=== PATIENT | male | born 1975 | race Caucasian/White ===

== ENCOUNTER → 2021-09-14 10:24 | Outpatient (CLI) | payer OTHER, SELFPAY ==
[2021-09-14 19:53] LABS: SARS-CoV-2 RNA PCR Positive
== END ==
PROVIDERS: PCP Internal Medicine; Visit Provider Physician Assistant
DX: U07.1 COVID-19 (principal)
CPT/HCPCS: C9803; U0003; U0005

== ENCOUNTER 2022-01-21 12:09 | Outpatient (CLI) | payer OTHER, SELFPAY ==
--- NOTE | ~2022-01-21 | XR_ITS ---
EXAMINATION: XR abdomen/kub 1V DATE: 01/21/2022 12:23 INDICATION: Nephrolithiasis presenting with hematuria TECHNIQUE: A supine view of the abdomen on 2 radiographs was obtained. COMPARISON: None. FINDINGS: No evident urolithiasis. A few small likely calcification project over the left side of the prostate. Normal bowel gas pattern. 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 With like ly moderate osteoarthritis at the lumbosacral facet joints. IMPRESSION: 1. Normal bowel gas pattern with no evident urolithiasis. Reviewed, dictated and finalized at location B.
== END 2022-01-21 12:10 | disposition home or self-care (01) ==
PROVIDERS: PCP Internal Medicine; Visit Provider Urology
DX: N20.0 Calculus of kidney (principal); M16.0 Bilateral primary osteoarthritis of hip; M47.898 Other spondylosis, sacral and sacrococcygeal region
CPT/HCPCS: 74018

== ENCOUNTER 2022-11-15 08:09 | Outpatient (CLI) | payer OTHER, SELFPAY ==
--- NOTE | 2022-12-13 18:42 | WPDSLEEPSTUD ---
Sleep Study Date of Study: 11/15/22 Ordering Provider: Dom Blanco DO Interpreting Physician: Suma Mcleod MD Sleep Study Type: Polysomnogram Height: 1.8 m Weight: 83.915 kg Body Mass Index: 25.7 Neck Circumference (inches): 16.5 [place]: 10 Reason for Sleep Study Hypersomnolence, fatigue, non-restorative sleep Sleep History Arsen Lawson is a 47-year-old male who complains of feeling tired during the day. He has loud frequent snoring. He has Nasal allergies, uses Flonase and Claritin. He has a history of asthma. He rarely awakens from sleep feeling short of breath. He does not awaken at night with heartburn, belching or coughing. He snores loudly enough that others complain. This is very frequent. He rarely has trouble sleeping with a cold. He rarely wakes up gasping for breath at night. He rarely has breathing problems at night observed by others. He rarely sweats excessively at night or notice his heart pounding or beating Irregularly at night. He frequently falls asleep during the day, never involuntarily or while driving. He does not have loss of muscle tone with strong emotion. He rarely has daytime difficulties due to excessive sleepiness. He rarely feels paralyzed on waking or falling asleep. He rarely has vivid dreamlike scenes on waking or falling asleep. He is not afraid to go to sleep. He rarely has nightmares. He rarely remembers his dreams. He rarely has racing thoughts. He rarely feels sad depressed or anxious. He rarely has muscular tension. He rarely notices parts of his body jerking. He rarely kicks at night. He rarely has crawling and aching feelings in his legs or any kind of leg pain at night. Rarely has morning jaw pain and rarely grinds his teeth during sleep. Rarely is bothered by pain during the day or awakened by pain at night. He occasionally wakes up feeling stiff the morning with sore achy muscles rarely wakes up with pain in the neck and spine. He has nightmares and fatigue. Normal bedtime is 11:00 p.m. falling asleep within 2 minutes generally waking twice at night. Sometimes he wakes to go to the bathroom, at other times may just repositioned to return to sleep. Sometimes, he may look at his iPad. His wake time is 6:30 a.m.. On weekends, bedtime is also 11:00 p.m. and his wake time is 9:00 a.m.. he takes naps in the afternoon or evening. A short nap lasting 10 or 15 minutes may be refreshing. He feels better in the morning compared to other times of day. He never has morning headaches. He occasionally awakens feeling refreshed. He rarely has memory or concentration problems. Habits: Quit tobacco. Caffeine 1 can per day. Alcohol on weekends. No recreational substances. [facility] Past Medical History Medical History Allergies Asthma Kidney stones Surgical History Surgical History History of repair of ACL Family History Family History Father Heart disease Mother Heart disease Sibling Thyroid disorder Social History Social History (Updated 07/19/22 @ 11:12 by Brissa Palumbo MA) Smoking status: Former smoker Tobacco type: cigarettes Lack of Transportation: No Lack of Food: Never True Current Housing: I Have Housing Concerned About Future Housing: No Difficulty Paying Gas/Electric Bills: No Difficulty Paying for Meds: No Currently Unemployed: No Education: Bachelor's Degree Difficulty w/ Childcare or Family Care: No Medications Home Medications Medication Instructions Recorded Confirmed Type albuterol sulfate 90 mcg/actuation 1 inh inhalation Q4-6H PRN 12/28/20 12/05/22 History breath activated powder inhaler Shortness Of Breath fluticasone propionate 50 1 spray intranasal DAILY 12/28/20 12/05/22 History mcg/actuation nasal spray,suspension (Flonase
[2022-12-13 20:27] VITALS: BMI 25.7
== END 2022-11-16 08:28 | disposition home or self-care (01) ==
LOC: ANHCSM 08:10
PROVIDERS: PCP Internal Medicine; Visit Provider Internal Medicine
DX: G47.10 Hypersomnia, unspecified (principal); G47.61 Periodic limb movement disorder; Z87.891 Personal history of nicotine dependence
CPT/HCPCS: 95810

== ENCOUNTER 2022-12-05 09:21 | Emergency (ER) | payer OTHER, SELFPAY ==
--- NOTE | 2022-12-05 09:25 | ED.URI ---
HPI - URI/Sore Throat General Chief Complaint: Upper Respiratory Infection Stated Complaint: SINUS/SORE THROAT Time Seen by Provider: 12/05/22 09:32 Source: patient and RN notes reviewed Mode of arrival: ambulatory Limitations: no limitations History of Present Illness HPI Narrative: 47-year-old male presents concern for 2 week history of sinus congestion, drainage, sinus pain. Reports he sees an ENT for chronic sinus problems. He reports he has been taking Sudafed, Flonase, ibuprofen Tylenol. He reports occasional cough. Reports chills. Denies fever, aches, sweats MD elicited complaint: cough and sore throat Related Data Home Medications Medication Instructions Recorded Confirmed albuterol sulfate 90 mcg/actuation 1 inh inhalation Q4-6H PRN 12/28/20 12/05/22 breath activated powder inhaler Shortness Of Breath fluticasone propionate 50 1 spray intranasal DAILY 12/28/20 12/05/22 mcg/actuation nasal spray,suspension (Flonase Allergy Relief) loratadine 10 mg tablet (Claritin) 10 mg PO DAILY 12/28/20 12/05/22 Allergies Allergy/AdvReac Type Severity Reaction Status Date / Time amoxicillin [From Augmentin] AdvReac Vomiting Verified 12/05/22 09:33 clavulanic acid AdvReac Vomiting Verified 12/05/22 09:33 [From Augmentin] Review of Systems Review of Systems: CONSTITUTIONAL: Denies malaise, sweats, or fever. Reports chills EYES: Denies visual changes, redness, or discharge. ENT: Reports rhinorrhea, congestion, sinus pain. Denies otalgia and sore throat. CARDIOVASCULAR: Denies chest pain, palpitations, or edema. RESPIRATORY: Reports cough. Denies dyspnea. GASTROINTESTINAL: Denies abdominal pain, nausea, vomiting, diarrhea SKIN: Denies rash or itching. MUSCULOSKELETAL: Denies myalgia. NEUROLOGIC: Reports headache. All systems reviewed & are unremarkable except as noted in HPI and below PMFSH Past Medical History Medical History Allergies Asthma Kidney stones Surgical History Surgical History History of repair of ACL Family History Family History Father Heart disease Mother Heart disease Sibling Thyroid disorder Social History Social History (Updated 07/19/22 @ 11:12 by Brissa Palumbo MA) Smoking status: Former smoker Tobacco type: cigarettes Lack of Transportation: No Lack of Food: Never True Current Housing: I Have Housing Concerned About Future Housing: No Difficulty Paying Gas/Electric Bills: No Difficulty Paying for Meds: No Currently Unemployed: No Education: Bachelor's Degree Difficulty w/ Childcare or Family Care: No Comments At time of signature, agree with nursing past medical, surgical, social and family history. There is no relevant family history pertinent to the presenting complaint Exam Narrative: GENERAL: Well-appearing, well-nourished, and in no acute distress. HEAD: Normocephalic EYES: PERRLA, conjunctivae clear ENT: Nares clear, turbinates edematous and erythematous. Mucous membranes moist. TM pearly burton with dull light reflex bilaterally; no tragal tenderness. Oropharynx not erythematous without lesions. Tonsils not enlarged and without exudate, no drooling, no hoarseness, no trismus, uvula midline. NECK: Supple. No lymphadenopathy CHEST: Clear to auscultation, breath sounds equal. No wheezing, rhonchi, rales, or stridor. No respiratory distress, speaks in full sentences. HEART: Regular rate and rhythm. No murmur heard. SKIN: Warm, dry, no rash. NEURO: Alert and oriented x3. PSYCH: Normal mood and affect Course Course Emergency Course: Patient is aware of diagnosis, understands and agrees to treatment plan. Anticipatory guidance given. Patient agrees to follow-up as directed and is aware of reasons to seek care at the emergency department. Portions of this record may hav
[2022-12-05 09:28] VITALS: BP 137/81; PULSE 80; RESP 16; TEMP 36.3; O2SAT 99
== END 2022-12-05 09:40 | disposition home or self-care (01) ==
PROVIDERS: Emergency Provider Nurse Practitioner; PCP Internal Medicine
DX: J01.90 Acute sinusitis, unspecified (principal); B96.89 Other specified bacterial agents as the cause of diseases classified elsewhere; Z87.891 Personal history of nicotine dependence
CPT/HCPCS: 99213; G0463

== ENCOUNTER 2023-11-15 06:06 | Day surgery (SDC) | payer OTHER, SELFPAY ==
[2023-10-26 13:12] VITALS: BMI 26.6
[2023-11-07 14:16] VITALS: BMI 25.4
--- NOTE | 2023-11-14 17:42 | WPDANESEPPF ---
Anes - Initial Pre Proc Eval Procedure: Operation Date: 11/15/23 08:00 Proposed Procedures p Screening Colonoscopy - Lenard Giles MD Date/Time: 11/14/23 17:42 Surgeon: Lenard Giles MD Pre Op Diagnosis: Neoplasm Screening Patient Data Age: 48 Gender: M Height: 1.8 m Weight: 83 kg Allergies Allergy/AdvReac Type Severity Reaction Status Date / Time No Known Allergies Allergy Verified 11/15/23 06:54 Home Medications Medication Instructions Recorded Confirmed Type albuterol sulfate 90 mcg/actuation 1 inh inhalation Q4-6H PRN 12/28/20 11/15/23 History breath activated powder inhaler Shortness Of Breath fluticasone propionate 50 1 spray intranasal DAILY 12/28/20 11/15/23 History mcg/actuation nasal spray,suspension (Flonase Allergy Relief) loratadine 10 mg tablet (Claritin) 10 mg PO DAILY 12/28/20 11/15/23 History Patient hx anesthesia problems: none Family hx anesthesia problems: none Results Review: All pre-operative results and documents have been reviewed as part of the pre-operative evaluation. [facility] Past Medical History Medical History (Updated 11/15/23 @ 07:13 by Lenard Giles MD) Allergies Asthma Hyperlipidemia Kidney stones Surgical History Surgical History History of repair of ACL Family History Family History Father Heart disease Mother Heart disease Sibling Thyroid disorder Social History Social History Smoking status: Former smoker Tobacco type: cigarettes Alcohol intake: current Substance use: never Substance use type: does not use Lack of Transportation: No Lack of Food: Never True Current Housing: I Have Housing Concerned About Future Housing: No Difficulty Paying Gas/Electric Bills: No Difficulty Paying for Meds: No Currently Unemployed: No Education: Bachelor's Degree Difficulty w/ Childcare or Family Care: No Living arrangements: with family Spiritual care concerns: No Anes - Eval Final PreProcedure Day of Procedure 11/14/23 17:42 Patient weight: overweight Heart: regular rate and rhythm Lungs: clear to auscultation Airway: Mallampati scale class II Neurological: alert and oriented Last oral intake: >/= 8 hours ASA classification: II Emergent: no Anesthetic plan: proceed Anesthesia type and monitoring: general GIVS and standard monitoring Results Review: All pre-operative results and documents have been reviewed as part of the pre-operative evaluation. Informed Consent: The patient's anesthetic plan and its attendant risks and benefits were discussed with the patient/family/POA. Questions were solicited and answers provided to the satisfaction of the patient/family/POA.
[2023-11-15 06:52] VITALS: BP 108/81; PULSE 79; RESP 14; TEMP 36.4; O2SAT 97
[2023-11-15] MEDS: LACTATED RINGERS 1,000 ML 150 ML IV CONT (07:02)
--- NOTE | 2023-11-15 07:12 | P.HP_ITS ---
History of Present Illness History of Present Illness Consent: Risks, benefits, and alternatives have been discussed and questions answered. Patient agrees to proceed with procedure. Chief complaint: Neoplasm Screening Narrative: Arsen Lawson is a 48 year old male presents for screening colonoscopy. Patient's current weight appetite and bowel movements are normal. He denies abdominal pain. Patient has had no bleeding. Family history noncontributory. Review of Systems Review of Systems: Review of systems is noncontributory. [facility] Past Medical History Medical History (Updated 11/15/23 @ 07:13 by Lenard Giles MD) Allergies Asthma Hyperlipidemia Kidney stones Surgical History Surgical History History of repair of ACL Family History Family History Father Heart disease Mother Heart disease Sibling Thyroid disorder Social History Social History Smoking status: Former smoker Tobacco type: cigarettes Alcohol intake: current Substance use: never Substance use type: does not use Lack of Transportation: No Lack of Food: Never True Current Housing: I Have Housing Concerned About Future Housing: No Difficulty Paying Gas/Electric Bills: No Difficulty Paying for Meds: No Currently Unemployed: No Education: Bachelor's Degree Difficulty w/ Childcare or Family Care: No Living arrangements: with family Spiritual care concerns: No Meds Home Medications and Allergies Home Medications Medication Instructions Recorded Confirmed Type albuterol sulfate 90 mcg/actuation 1 inh inhalation Q4-6H PRN 12/28/20 11/15/23 History breath activated powder inhaler Shortness Of Breath fluticasone propionate 50 1 spray intranasal DAILY 12/28/20 11/15/23 History mcg/actuation nasal spray,suspension (Flonase Allergy Relief) loratadine 10 mg tablet (Claritin) 10 mg PO DAILY 12/28/20 11/15/23 History Allergies Allergy/AdvReac Type Severity Reaction Status Date / Time No Known Allergies Allergy Verified 11/15/23 06:54 Vital Signs Vital Signs - 24 hr 11/15/23 06:52 Temperature 97.5 F L Pulse Rate 79 Respiratory Rate 14 Blood Pressure 108/81 Pulse Oximetry 97 Oxygen Delivery Room Air Exam Narrative: Physical exam reveals patient to be alert. Vital signs stable. HEENT exam is unremarkable. Patient is anicteric. Lungs are clear to auscultation and to percussion. Heart is without murmur or extra sounds. Abdomen bowel sounds are present soft nontender with no organomegaly. Digital external rectal exam is normal. Assessment and Plan Assessment and plan (1) Encounter for screening colonoscopy: Code(s): Z12.11 - Encounter for screening for malignant neoplasm of colon Status: Acute Assessment and Plan: Patient presents today for screening colonoscopy. He appears to be at average risk for colon polyps. Further recommendations may be given after his endoscopy.
[2023-11-15 08:18] VITALS: BP 103/73; PULSE 82; RESP 16; O2SAT 98
[2023-11-15 08:28] VITALS: BP 112/75; PULSE 69; RESP 20; O2SAT 98
[2023-11-15 08:38] VITALS: BP 111/83; PULSE 70; RESP 20; O2SAT 97
--- NOTE | 2023-11-15 12:28 | WPDANESPN ---
Anes - Prog Note Post-Op Date/Time: 11/15/23 12:28 Cardiovascular status: normal Respiratory status: normal Airway patency: baseline Mental status: baseline Post-Op hydration status: normal Vital Signs: Last Vital Signs Temp 36.4 C L 11/15/23 06:52 Pulse 70 11/15/23 08:38 Resp 20 11/15/23 08:38 BP 111/83 11/15/23 08:38 Pulse Ox 97 11/15/23 08:38 O2 Del Method Room Air 11/15/23 08:38 Pain Score (VAS): 0 I/O: Intake & Output 11/14/23 11/15/23 11/15/23 23:59 07:59 15:59 Intake Total 600 Balance 600 Post-procedural complaints: none Patient Feedback: Patient satisfied with anesthetic care. Other Findings: Patient vital signs back to baseline. Patient denies nausea and vomiting. Patient's pain under control. Patient OK for discharge.
== END 2023-11-15 08:54 | disposition home or self-care (01) ==
PROVIDERS: PCP Physician Assistant; Visit Provider Internal Medicine Gastroenterology
PROC: 0DJD8ZZ Inspection of Lower Intestinal Tract, Via Natural or Artificial Opening Endoscopic (ICD-10-PCS; CPT 45378; principal; 2023-11-15 08:00)
DX: Z12.11 Encounter for screening for malignant neoplasm of colon (principal); D12.0 Benign neoplasm of cecum; D12.4 Benign neoplasm of descending colon; K57.30 Diverticulosis of large intestine without perforation or abscess without bleeding; K64.8 Other hemorrhoids
CPT/HCPCS: 45385

== ENCOUNTER 2023-11-15 14:28 | Outpatient (NON) | payer OTHER, SELFPAY | END 2023-11-15 14:29 | disposition home or self-care (01) | LOC: ANHLAB 14:29 | PROVIDERS: PCP Physician Assistant; Visit Provider Internal Medicine Gastroenterology | DX: Z12.11 Encounter for screening for malignant neoplasm of colon (principal) | CPT/HCPCS: 88305 ==

== ENCOUNTER → 2024-07-01 09:37 | Outpatient (REF) | payer OTHER, SELFPAY | LOC: ANHLAB 09:37 | PROVIDERS: PCP Physician Assistant; Visit Provider Plastic Surgery | DX: L72.0 Epidermal cyst (principal) | CPT/HCPCS: 88305 ==

== ENCOUNTER 2024-12-19 15:46 | Emergency (ER) | payer OTHER, SELFPAY ==
[2024-12-19 15:59] VITALS: BP 123/84; PULSE 93; RESP 16; O2SAT 99
[2024-12-19 16:20] VITALS: TEMP 36.4
--- OUTSIDE RECORDS SUMMARY | 2024-12-19 16:59 | XMS_ITS | Clinical Summary ---
Author Organization [facility] Address [address] [place] [address] [address] Prov[address] Care Drive In Theater Attendant Name Role Phone Claude Woodward MD Primary Care Provider [phone] Allergies No known active allergies Medications albuterol HFA (PROVENTIL HFA,VENTOLIN HFA,PROAIR HFA) 90 mcg/actuation inhalerIndicati ons:Acute Asthma Attack Inhale 2 puffs every 6 (six) hours as needed for shortness of breath Active fluticasone propionate (FLONASE) 50 mcg/actuation nasal sprayIndication s:Allergic Rhinitis Administer 1 spray into each nostril nightly Active Active Problems Problem Noted Date Diagnosed Date Tear of medial meniscus of left knee, current S/P ACL reconstruction 09/07/2020 Left anterior cruciate ligament tear 03/02/2020 Overview (03/02/2020): Added automatically from request for surgery [id number] Immunizations Immunization Administration Dates Next Due Influenza, Quadrivalent, Rec ombinant, Egg Free, Preservative Free, Intramuscular 07/26/2018 Influenza, Trivalent, IM (MDV) 09/20/2013,2011 Influenza, Trivalent, Preservative Free, Intramu scular 06/11/2017 Tdap 06/30/2024 Surgical History Surgery Date Site/Laterality Comments KIDNEY STONE SURGERY KNEE ARTHROSCOPY 03/23/2020 Left ACL RECONSTRUCTION HAMSTRING Medical History Medical History Date Comments Asthma well controlled Seasonal allergies Family History Medical History Relation Name Comments Heart disease Father No Known Problems Mother Heart disease Other Anesthesia problems Neg Hx Relation Name Status Comments Father Mother Other Social History Tobacco Use Types Packs/Day Years Used Date Smoking Tobacco: Never Smokeless Tobacco: Never Alcohol Use Standard Drinks/Week Comments Yes 4 (1 standard drink = 0.6 oz pur e alcohol) SOCIALLY Sex and Gender Information Value Date Recorded Sex Assigned at Not on file Legal Sex Male 8:25 AM CDT Gender Identity Not on file Sexual Orientation Not on file Obstetrics History Last Filed Vital Signs Vital Sign Reading Time Taken Comments Blood Pressure 120/70 06/30/2024 2:21 PM ANALYST PROGRAMMER Pulse 78 06/30/2024 2:21 PM ANALYST PROGRAMMER Temperature 37.2 C (98.9 F) 06/30/2024 2:21 PM ANALYST PROGRAMMER Respiratory Rate 20 06/30/2024 2:21 PM ANALYST PROGRAMMER Oxygen Saturation 99% 06/30/2024 2:21 PM ANALYST PROGRAMMER Inhaled Oxygen Concentration - - Weight 83.9 kg (185 lb) 06/30/2024 2:21 PM ANALYST PROGRAMMER Height 180.3 cm (5' 11 ) 06/30/2024 2:21 PM ANALYST PROGRAMMER Body Mass Index 25.8 06/30/2024 2:21 PM ANALYST PROGRAMMER Plan of Treatment Health Maintenance Due Date Last Done Comments Colon Cancer Screening-Colonoscopy 1974 Depression Screening 1974 Hepatitis C Screening 1974 Prostate Cancer Screening-PSA 1974 Hepatitis B Screening 1992 Regular Well Visit/Exam 18-64 1992 Covid-19 Vaccine ( season) 2024 11/16/2020, 10/14/2020 Influenza Vaccine (#1) 2024 8, 06/11/2017, 09/20/2013, Additional history exists Zoster Vaccine (1 of 2) 2024 DTaP/Tdap/Td Vaccine (2 - Td or Tdap) 06/30/2034 06/30/2024 Pneumococcal vaccine <65 Aged Out No longer eligible based on patient's age to complete this topic Medical Devices Implanted Type Area Surveillance Analyst Device Identifier Shelf Expiration Date Model / Serial / Lot [employer] Ar-[id number] Tightrope Acl Right Device Fixation Titanium Uhmwpe Sterile Latex Free - [id number] Implanted:Qty: 1 on 03/23/2020 by Noelle Acevedo MD at [facility] [place] Left: Knee [employer] 08/27/2024 AR-[id number] / / [id number] [employer] Ar-2324bcc Swivelock C 4.75mm 19.1mm Closed Eyelet Vent [place] Suture - [id number] Implanted:Qty: 1 on 03/23/2020 by Noelle Acevedo MD at [facility] [place] Left: Knee [employer] 12/26/2023 AR-2324BCC / / [id number] [employer] Ar-4030c-09 Screw Fastthread Biocomposite Interference 9mm X 30mm - [id number] Implanted:Qty: 1 on 03/23/2020 by Noelle Acevedo MD at [facility] Left: Knee [employer] 11/26/2023 AR-4030C-09 / / [id number] Insurance [facility] Care Teams Drive In Theater Attendant Relationship Specialty Start Date End Date Claude Woodward MD [address] [place] [id number] PCP - General Family Medicine 11/04/19
--- OUTSIDE RECORDS SUMMARY | 2024-12-19 16:59 | XMS_ITS | Referral Summary ---
Author Organization [facility] Address [address] [place] [address] Care Team Providers Care Supervisor Assembly Department Name Role Phone Claude Woodward MD Primary Care Provider [phone] Allergies No known active allergies Medications albuterol [...] (03/02/2020): Added automatically from request for surgery [id number] Immunizations Immunization Administration Dates Next Due Influenza, Quadrivalent, Rec ombinant, Egg Free, Preservative Free, Intramuscular 07/26/2018 Influenza, Trivalent, IM (MDV) 09/20/2013,2011 Influenza, Trivalent, Preservative Free, Intramu scular 06/11/2017 Tdap 06/30/2024 Social History Tobacco Use Types Packs/Day Years Used Date Smoking Tobacco: Never Smokeless Tobacco: Never Alcohol Use Standard Drinks/Week Comments Yes 4 (1 standard drink = 0.6 oz pur e alcohol) SOCIALLY Sex and Gender Information Value Date Recorded Sex Assigned at Not on file Legal Sex Male 8:25 AM CDT Gender Identity Not on file Sexual Orientation Not on file Last Filed Vital Signs Vital Sign Reading Time Taken Comments Blood Pressure 120/70 06/30/2024 2:21 PM WOOD CALKER Pulse 78 06/30/2024 2:21 PM WOOD CALKER Temperature 37.2 C (98.9 F) 06/30/2024 2:21 PM WOOD CALKER Respiratory Rate 20 06/30/2024 2:21 PM WOOD CALKER Oxygen Saturation 99% 06/30/2024 2:21 PM WOOD CALKER Inhaled Oxygen Concentration - - Weight 83.9 kg (185 lb) 06/30/2024 2:21 PM WOOD CALKER Height 180.3 cm (5' 11 ) 06/30/2024 2:21 PM WOOD CALKER Body Mass Index 25.8 06/30/2024 2:21 PM WOOD CALKER Plan of Treatment Not on file Medical Devices Implanted Type Area Doctor'S Assistant Device Identifier Shelf Expiration Date Model / Serial / Lot [employer] Ar-[id number] Tightrope Acl Right Device Fixation Titanium Uhmwpe Sterile Latex Free - [id number] Implanted:Qty: 1 on 03/23/2020 by Noelle Acevedo MD at [facility] [place] Left: Knee [employer] 08/27/2024 AR-1588RT / / [id number] [employer] Ar-2324bcc Swivelock C 4.75mm 19.1mm Closed Eyelet Vent [place] Suture - [id number] Implanted:Qty: 1 on 03/23/2020 by Noelle Acevedo MD at [facility] Left: Knee [employer] 12/26/2023 AR-2324BCC / / [id number] [employer] Ar-4030c-09 Screw Fastthread Biocomposite Interference 9mm X 30mm - [id number] Implanted:Qty: 1 on 03/23/2020 by Noelle Acevedo MD at [facility] [place] Left: Knee [employer] 11/26/2023 AR-4030C-09 / / [id number] Insurance [facility] CHOICE PLUS [facility] CHOICE PLUS [facility] CHOICE PLUS Member Subscriber Plan / Payer (Ef fective 2021-Present) Name:Arsen Radford Relation to Subscriber:Spouse Name:AMAYA RADFORD Date of :1980 Address: [address] [place] [id number] Payer ID:[id number] (NAIC) Type:[facility] HMO/PPO Address: [place] [phone] Care Teams Supervisor Assembly Department Relationship Specialty Start Date End Date Claude Woodward MD [address] [place] [id number] PCP - General Family Medicine 11/04/19
--- OUTSIDE RECORDS SUMMARY | 2024-12-19 16:59 | XMS_ITS | Encounter Summary ---
Author Organization [facility] Address [address] [place] [address] Care Team Providers Care Crm Dynamics Developer Name Role Phone Claude Woodward MD Primary Care Provider Encounter Details Date Type Department Care Team (Late st Contact Info) Description 03/02/2018 Lab Requisition [facility] Care DermPath Lab [address] [facility] [place] [id number] Ari Tellez MD [address] [place] [address] Social History Tobacco Use Types Packs/Day Years Used Date Smoking Tobacco: Never Assessed Sex and Gender Information Value Date Recorded Sex Assigned at Not on file 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 Gender Identity Not on file Sexual Orientation Not on file documented as of this encounter Plan of Treatment Not on file documented as of this encounter Procedures Procedure Name Priority Date/Time Associated Diagnosis Comments DERMPATH SLIDE CONSULT Routine 03/02/2018 12:00 AM CDT documented in this encounter Results * DERMPATH SLIDE CONSULT (03/02/2018 12:00 AM CDT) Case Report Dermatopathology Report Case: [id number] Authorizing Provider: Ari Tellez MD Collected: 03/02/2018 12:00 AM Pathologist: Patricia Singh MD Received: 03/02/2018 09:40 AM Specimen: Slide(s), Left lower back, [id number]# [id number] 8 2:41 PM CDT DERMATOPATHOLOGY LABORATORY Final Diagnosis Specimen A. Slide(s), Left lower back, OSC# [id number]: DERMATOFIBROMA, CELLULAR TYPE (D23.9) 8 2:41 PM CDT DERMATOPATHOLOGY LABORATORY Clinical History Materials received from: [facility], [email or web address] [address] [place] [id number] Received at the request of Dr. Ari Tellez, a consult will be performed on 3 slide(s) labeled [id number]. Bx Date: 02/19/2018 Cyst vs neoplasm. All slides returned. Any additional sections, special stains or immunohistochemical stains performed by our laboratory will be kept here on file. 2:41 PM CDT DERMATOPATHOLOGY LABORATORY Microscopic Description Specimen A. Slide(s), Left lower back, OSC# [id number]: Within the dermis, there is a cellular proliferation of fibrohistiocytic cells in haphazard array among coarse collagen bundles. There is overlying epidermal hyperplasia. There is collagen trapping at the periphery. COMMENT: Dr. Rose Strong has also reviewed this case and agrees with the diagnosis. 2:41 PM CDT DERMATOPATHOLOGY LABORATORY Disclaimer An external and internal positive and negative controls are appropriate for the histochemical, immunohistochemical and immunofluorescence stain(s) in this case (if any), except where stated explicitly. The performance characteristics of the stain(s) cited in this report were developed and its performance characteristic determined by the Dermatopathology Laboratory at [facility]. These tests need not be, and therefore are not, approved by the [place] Food and Drug Administration. The tests are used for clinical purposes. Billing Codes Specimen Charges Stain Charges 56363 1 8 2:41 PM CDT DERMATOPATHOLOGY LABORATORY Embedded Images 8 2:41 PM CDT DERMATOPATHOLOGY LABORATORY Pathology/Cytolog y SLIDE / Unknown 03/02/2018 03/02/2018 9:40 AM CDT Ari Tellez MD LAB - PATHOLOGY/CYTOLOGY ORDERAB LES Final Result DERMATOPATHOLOGY LABORATORY [facility] - Department of Dermatology [address] [facility], 5th Floor Lab [address] [phone] documented in this encounter Visit Diagnoses Not on filedocumented in this encounter Care Teams Crm Dynamics Developer Relationship Specialty Start Date End Date Claude Woodward MD [address] [place] [address] PCP - General Family Medicine 08/25/18 documented as of this encounter
--- OUTSIDE RECORDS SUMMARY | 2024-12-19 16:59 | XMS_ITS | Clinical Summary ---
Author Organization [facility] Address [address] [facility] [place] [address] Care Team Providers Care Microbiology Coordinator Name Role Phone Claude Woodward MD Primary Care Provider + [phone] Source Comments [facility],non-owned Affiliates and Associated Physician Practices is amultiple site organization consisting of ambulatory clinics and hospital sitesin [place], [place], [place] and [place]. This disclosure is being madepursuant to the Care Everywhere program and may not contain all informatio navailable regarding this patient. Last updated 18.[facility] Allergies No known active allergies Medications * Be aware that medications may not be up to date on this document. Alwaysverify current medications with the patient. Fluticasone Propionate (FLONASE NA) Active Loratadine (CLARITIN PO) Active Immunizations Immunization Administration Dates Next Due iNFLUENZA VACCINE, RECOM-DE DIOS, QUADR. (FLUBLOCK QUADRIVALENT; 18Y+) (RIV4) 07/26/2018 Family History Medical History Relation Name Comments Other - Cardiac Father Asthma Neg Hx Autoimmune Disease Neg Hx Bipolar Disorder Neg Hx Cancer - Breast Neg Hx Cancer - Colon Neg Hx Cancer - Other Neg Hx Cancer - Ovarian Neg Hx Cancer - Pancreatic Neg Hx Cancer - Prostate Neg Hx Depression Neg Hx Eczema Neg Hx Hypertension Neg Hx Migraine Neg Hx Osteoporosis Neg Hx Seizures Neg Hx Sudd. 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 Gender Identity Not on file Sexual Orientation Not on file Last Filed Vital Signs Vital Sign Reading Time Taken Comments Blood Pressure 116/62 08/25/2018 2:29 PM LIVESTOCK BREEDER Pulse 80 08/25/2018 2:29 PM LIVESTOCK BREEDER Temperature 36.8 C (98.2 F) 08/25/2018 2:29 PM LIVESTOCK BREEDER Respiratory Rate 16 08/25/2018 2:29 PM LIVESTOCK BREEDER Oxygen Saturation 97% 08/25/2018 2:29 PM LIVESTOCK BREEDER Inhaled Oxygen Concentration - - Weight 83.9 kg (185 lb) 08/25/2018 2:29 PM LIVESTOCK BREEDER Height 180.3 cm (5' 11 ) 08/25/2018 2:29 PM LIVESTOCK BREEDER Body Mass Index 25.8 08/25/2018 2:29 PM LIVESTOCK BREEDER Plan of Treatment Health Maintenance Due Date Last Done Comments COLOGUARD (AGES 45-75) - COL ON CA SCREENING 1974 COLON MONITORING 1974 COLONOSCOPY - COLON CA SCREENING 1974 CT COLONOGRAPHY - COLON CA SCREENING 1974 Colorectal Cancer Screening 1974 FIT - COLON CA SCREENING 1974 FLEX SIG - COLON CA SCREENING 1974 LIPID TESTING 1974 HIV SCREENING 1989 HEPATITIS C SCREENING 10/07/1992 DTAP/TDAP/TD VACCINES (1 - Tdap) 1993 HEPATITIS B VACCINE (1 of 3 - 19+ 3-dose series) 1993 SCREENING FOR DIABETES 08/25/2018 COVID-19 VACCINE (1 - 2023-2 5 season) 2024 DEPRESSION SCREENING 08/28/2024 PNEUMOCOCCAL VACCINE 50+ (1 of 1 - PCV) 2024 ZOSTER VACCINE (1 of 2) 2024 INFLUENZA VACCINE (Season Ended) 2025 07/26/20 18 HIB VACCINE Aged Out No longer eligi ble based on patient's age to complete this topic HPV VACCINE Aged Out No longer eligi ble based on patient's age to complete this topic MENINGOCOCCAL (Group B) VACC INE SHARED DECISION-MAKING Aged Out No longer eligibl e based on patient's age to complete this topic MENINGOCOCCAL GROUPS A/C/Y/W VACCINE Aged Out No longer eligible b ased on patient's age to complete this topic Insurance [facility] SELF PAY NO INSURANCE Member Subscriber Plan / Payer (Ef fective for All Dates) Name:Patrick Radford Member ID:Not on file Relation to Subscriber:Not on file Name:PATRICK RADFORD Subscriber ID:Not on file (Home) Address: [address] [place] [id number] Payer ID:Not on file Group ID:Not on file Type:Self Pay Address: [place], [place] [employer] [facility] [facility] SELF PAY NO INSURANCE Member Subscriber Plan / Payer (Ef fective for All Dates) Name:Patrick Radford Member ID:Not on file Relation to Subscriber:Not on file Name:PATRICK RADFORD Subscriber ID:Not on file Address: [facility] [place] [id number] Payer ID:Not on file Group ID:Not on file Type:Self Pay Address: [place], [place] [facility] SELF PAY NO INSURANCE Member Subscriber Plan / Payer (Ef fective for All Dates) Name:Patrick Radford Member ID:Not on file Relation to Subscriber:Not on file Name:RADFORDPATRICK Subscriber ID:Not on file Address: [address] [place] [address] Payer ID:Not on file Group ID:Not on file Type:Self Pay Address: [place], [place] [facility] SELF PAY NO INSURANCE Member Subscriber Plan / Payer (Ef fective for All Dates) Name:Patrick Radford Member ID:Not on file Relation to Subscriber:Not on file Name:PATRICK RADFORD Subscriber ID:Not on file Address: [address] [place] [address] Payer ID:Not on file Group ID:Not on file Type:Self Pay Address: [place], [place] Care Teams Microbiology Coordinator Relationship Specialty Start Date End Date Claude Woodward MD [address] [place] [address] PCP - General Family Medicine 08/25/18
--- NOTE | 2024-12-19 17:14 | PC.NURSE ---
Pt denies nausea at this time. Pt expressed he did not understand what the term 'nausea' meant, this RN educated pt on meaning of nausea. Pt continued to deny nausea.
--- NOTE | 2024-12-19 18:03 | ED.NAVMDI ---
HPI - Nausea/Vomiting/Diarrhea General Chief complaint: Nausea/Vomiting/Diarrhea Stated complaint: Accidently took meds he's allergic to Time Seen by Provider: 12/19/24 16:59 History of Present Illness HPI Narrative: 49-year-old otherwise healthy male presenting to the emergency department after accidentally ingesting a single Augmentin tablet. Patient states that he is allergic to this and he gets vomiting but no other signs or symptoms of anaphylaxis. He states he has had amoxicillin without difficulty in the past and believes it is the other component of Augmentin that causes his symptoms. He states he accidentally took this instead of his prescribed medication that his urologist Dr. Stein gave him today. Patient states that he had some several episodes of emesis at home and came to the ER at the request of his primary care provider. Patient is not nauseous or having any profound vomiting here in the ED. He denies any symptoms and states that the last 2 hours he has not had any symptoms such as nausea vomiting. He is otherwise well-appearing and tolerating oral intake in the room. Denies any shortness a breath, rash, abdominal pain or diet Related Data Home Medications ?Medication ?Instructions ?Recorded ?Confirmed ?Last Taken ?Type albuterol sulfate 90 mcg/actuation 1 inh inhalation Q4-6H PRN 12/28/20 09/13/24 Unknown History breath activated powder inhaler Shortness Of Breath fluticasone propionate 50 1 spray intranasal DAILY 12/28/20 09/13/24 Unknown History mcg/actuation nasal spray,suspension (Flonase Allergy Relief) loratadine 10 mg tablet (Claritin) 10 mg PO DAILY 12/28/20 09/13/24 Unknown History Allergies Allergy/AdvReac Type Severity Reaction Status Date / Time amoxicillin-pot clavulanate AdvReac Severe Vomiting Uncoded 12/19/24 15:48 Review of Systems Review of Systems: As reviewed above in HPI PMFSH Past Medical History Medical History Hyperlipidemia Kidney stones Asthma Allergies Surgical History Surgical History History of repair of ACL Family History Family History Father Heart disease Mother Heart disease Sibling Thyroid disorder Social History Social History Smoking status: Former smoker Tobacco type: cigarettes Alcohol intake: current Substance use: never Substance use type: does not use Lack of Transportation: No Lack of Food: Never True Current Housing: I Have Housing Concerned About Future Housing: No Difficulty Paying Gas/Electric Bills: No Difficulty Paying for Meds: No Currently Unemployed: No Education: Bachelor's Degree Difficulty w/ Childcare or Family Care: No Living arrangements: with family Spiritual care concerns: No Exam Narrative: GENERAL: [Well-appearing, well-nourished, and in no acute distress.] HEAD: [Normocephalic, atraumatic.] EYES: [PERRLA and EOMI.] ENT: Nares clear, no rhinorrhea or epistaxis. Mucous membranes moist. NECK: Supple. CHEST: [Clear to auscultation. No respiratory distress.] HEART: [Regular rate and rhythm]. No murmur heard. [Normal peripheral pulses.] ABDOMEN: [Soft, nondistended], [nontender], [No rigidity or guarding] EXTREMITIES: Normal range of motion. [No edema.] SKIN: Warm, dry, no rash. NEURO: [No focal deficits]. Alert and oriented [x3.] PSYCH: [Normal mood and affect.] Course Vital Signs Vital signs: Vital Signs Pulse Rate 93 12/19/24 15:59 Respiratory Rate 16 12/19/24 15:59 Blood Pressure 123/84 12/19/24 15:59 Pulse Oximetry 99 12/19/24 15:59 Oxygen Delivery Room Air 12/19/24 15:59 Temperature 36.4 C 12/19/24 16:20 Pulse Rate 93 12/19/24 15:59 Respiratory Rate 16 12/19/24 15:59 Blood Pressure 123/84 12/19/24 15:59 Pulse Oximetry 99 12/19/24 15:59 Oxygen Delivery Room Air 12/19/24 15:59 MDM - Nausea/Vomiting/Diarrhea MDM Narrative Medical decision making narrative: 49-year-old male that accidentally ingested Augmentin. He states that he gets reactions to Augmentin with vomiting but takes amoxicillin without difficulty. No anaphylaxis allergies. He has normal vital signs, otherwise well-appearing and has not had any nausea vomiting or any kind of symptomatology for last 2 hours since his arrival to the emergency department. He vomited several times at home. He is tolerating oral intake here in the emergency department. No persistent symptomatology, no signs or symptoms of significant allergic reaction or anaphylaxis. Plan initially was to to obtain blood work and provide him medications including Zofran but patient politely declined. He was observed for a number of hours and safe for discharge home at this time. Patient was given return precautions and he verbalized understanding the instructions and follow-up with his doctor as needed. Medical Records Attestation: I reviewed the patient's medical records. Discharge Plan Discharge Clinical Impression: Adverse drug effect Patient Disposition: Home Condition: Stable Instructions: Antibiotic Form Additional Instructions: Follow-up with your regular primary care provider. If you experience any rebound of your nausea vomiting or developing any abdominal pain, shortness a breath, diarrhea or any other concerns you can return to the emergency department otherwise you are safe for discharge home at this time. Refrain from taking Augmentin similar medications from now on. Patient Language: [place] Prescriptions: No Action fluticasone propionate [Flonase Allergy Relief] 50 mcg/actuation spray,suspension 1 spray intranasal DAILY Rx Instructions: administer into each nostril albuterol sulfate 90 mcg/actuation aerosol powdr breath activated 1 inh inhalation Q4-6H PRN (Reason: Shortness Of Breath) loratadine [Claritin] 10 mg tablet 10 mg PO DAILY cefdinir 300 mg capsule 300 mg PO Q12H Qty: 20 0RF prednisone 5 mg tablet 5 mg PO DIRECTED Qty: 36 0RF Rx Instructions: Eight po today, decreasing by one daily until gone Follow-up/Referrals: Vasiliy Holley DO [Primary Care Provider] - Time of Disposition: 18:02
--- OUTSIDE RECORDS SUMMARY | 2024-12-19 18:12 | XMS_ITS | Referral Summary ---
Author Organization [facility] Address [address] [place] [address] Care Team Providers Care Radio Interference Investigator Name Role Phone Claude Woodward MD Primary Care Provider [phone] Allergies No known active allergies Medications albuterol [...] (03/02/2020): Added automatically from request for surgery [id number] Immunizations Immunization Administration Dates Next Due Influenza, [...] Comments Blood Pressure 120/70 06/30/2024 2:21 PM ELECTRIC MILKERS INSTALLER Pulse 78 06/30/2024 2:21 PM ELECTRIC MILKERS INSTALLER Temperature 37.2 C (98.9 F) 06/30/2024 2:21 PM ELECTRIC MILKERS INSTALLER Respiratory Rate 20 06/30/2024 2:21 PM ELECTRIC MILKERS INSTALLER Oxygen Saturation 99% 06/30/2024 2:21 PM ELECTRIC MILKERS INSTALLER Inhaled Oxygen Concentration - - Weight 83.9 kg (185 lb) 06/30/2024 2:21 PM ELECTRIC MILKERS INSTALLER Height 180.3 cm (5' 11 ) 06/30/2024 2:21 PM ELECTRIC MILKERS INSTALLER Body Mass Index 25.8 06/30/2024 2:21 PM ELECTRIC MILKERS INSTALLER Plan of Treatment Not on file Medical Devices Implanted Type Area Wrecking Car Driver Device Identifier Shelf Expiration Date Model / Serial / Lot [employer] Ar-[id number] Tightrope Acl Right Device Fixation Titanium Uhmwpe Sterile Latex Free - [id number] Implanted:Qty: 1 on 03/23/2020 by Noelle Acevedo MD at [facility] [place] Left: Knee [employer] 08/27/2024 AR-1588RT / / [id number] [employer] Ar-2324bcc Swivelock C 4.75mm 19.1mm Closed Eyelet Vent [place] Suture - [id number] Implanted:Qty: 1 on 03/23/2020 by Noelle Acevedo MD at [facility] Left: Knee [employer] 12/26/2023 AR-2324BCC / / [id number] [employer] Ar-4030c-09 Screw Fastthread Biocomposite Interference 9mm X 30mm - [id number] Implanted:Qty: 1 on 03/23/2020 by Noelle Acevedo MD at [facility] [place] Left: Knee [employer] 11/26/2023 AR-4030C-09 / / [id number] Insurance [facility] PL[facility] H[facility]/PPO Address: [place] [id number] [place] [address] [facility]/[place] [address] [facility] CHOICE PLUS [facility] H[facility]/PPO Address: [place] [phone] Care Teams Radio Interference Investigator Relationship Specialty Start Date End Date Claude Woodward MD [address] [place] [address] PCP - General Family Medicine 11/04/19
--- OUTSIDE RECORDS SUMMARY | 2024-12-19 18:12 | XMS_ITS | Clinical Summary ---
Author Organization [facility] Address [address] [place] [address] Care Team Providers Care Billing Administrator Name Role Phone Claude Woodward MD Primary Care Provider [phone] Allergies No known active allergies Medications albuterol [...] (03/02/2020): Added automatically from request for surgery [id number] Immunizations Immunization Administration Dates Next Due Influenza, [...] Comments Blood Pressure 120/70 06/30/2024 2:21 PM COOKING CHEF Pulse 78 06/30/2024 2:21 PM COOKING CHEF Temperature 37.2 C (98.9 F) 06/30/2024 2:21 PM COOKING CHEF Respiratory Rate 20 06/30/2024 2:21 PM COOKING CHEF Oxygen Saturation 99% 06/30/2024 2:21 PM COOKING CHEF Inhaled Oxygen Concentration - - Weight 83.9 kg (185 lb) 06/30/2024 2:21 PM COOKING CHEF Height 180.3 cm (5' 11 ) 06/30/2024 2:21 PM COOKING CHEF Body Mass Index 25.8 06/30/2024 2:21 PM COOKING CHEF Plan of Treatment Health Maintenance Due Date [...] this topic Medical Devices Implanted Type Area Merry Go Round Operator Device Identifier Shelf Expiration Date Model / Serial / Lot [employer] Ar-[id number] Tightrope Acl Right Device Fixation Titanium Uhmwpe Sterile Latex Free - [id number] Implanted:Qty: 1 on 03/23/2020 by Noelle Acevedo MD at [facility] [place] Left: Knee [employer] 08/27/2024 AR-1588RT / / [id number] [employer] Ar-2324bcc Swivelock C 4.75mm 19.1mm Closed Eyelet Vent [place] Suture - [id number] Implanted:Qty: 1 on 03/23/2020 by Noelle Acevedo MD at [facility] [place] Left: Knee [employer] 12/26/2023 AR-2324BCC / / [id number] [employer] Ar-4030c-09 Screw Fastthread Biocomposite Interference 9mm X 30mm - [id number] Implanted:Qty: 1 on 03/23/2020 by Noelle Acevedo MD at [facility] Left: Knee [employer] 11/26/2023 AR-4030C-09 / / [id number] Insurance [facility] CHO[facility] PLUS [facility] CHOICE PLUS [facility] CHOICE PLUS Care Teams Billing Administrator Relationship Specialty Start Date End Date Claude Woodward MD [address] [place] [id number] PCP - General Family Medicine 11/04/19
--- OUTSIDE RECORDS SUMMARY | 2024-12-19 18:12 | XMS_ITS | Clinical Summary ---
Author Organization [facility] Address [facility] [place] [address] Care Team Providers Care Interactive Video Technician Name Role Phone Unavailable Primary Care Provider Unavailabl e Social History Tobacco Use Types Packs/Day Years Used Date Smoking Tobacco: Never Assessed Sex and Gender Information Value Date Recorded Sex Assigned at Not on file Legal Sex Male 7:58 PM CDT Gender Identity Not on file Sexual Orientation Not on file Last Filed Vital Signs Vital Sign Reading Time Taken Comments Blood Pressure 120/68 11/03/2016 4:49 PM SMALL ENGINE TECHNICIAN Pulse - - Temperature - - Respiratory Rate - - Oxygen Saturation - - Inhaled Oxygen Concentration - - Weight 83.9 kg (185 lb) 11/03/2016 4:49 PM SMALL ENGINE TECHNICIAN Height 180.3 cm (5' 11 ) 11/03/2016 4:49 PM SMALL ENGINE TECHNICIAN Body Mass Index 25.8 11/03/2016 4:49 PM SMALL ENGINE TECHNICIAN Plan of Treatment Health Maintenance Due Date Last Done Comments Colorectal Cancer Screening Colonoscopy (10 Years) 1974 Annual Physical 1977 Hepatitis C 1992 DTaP, Tdap and Td Vaccines ( 1 - Tdap) 1993 Hepatitis B Vaccines (1 of 3 - 19+ 3-dose series) 1993 COVID-19 Vaccine ( - 2023-2 5 season) 2024 11/16/2020, 10/14/2020 Pneumococcal Vaccine: 50+ Years (1 of 1 - PCV) 2024 Zoster Vaccines (1 of 2) 2024 Meningococcal B Vaccine Aged Out No l onger eligible based on patient's age to complete this topic Meningococcal Vaccine Aged Out No zee lynn eligible based on patient's age to complete this topic RSV Immunizations Under 20 Months Aged Out No longer eligible b ased on patient's age to complete this topic
--- OUTSIDE RECORDS SUMMARY | 2024-12-19 18:12 | XMS_ITS | Clinical Summary ---
Author Organization [facility] Address [address] [place] [address] Care Team Providers Care In Store Marketing Representative Name Role Phone Claude Woodward MD Primary Care Provider + [phone] Source Comments [facility],non-owned Affiliates and Associated Physician Practices is amultiple site organization consisting of ambulatory clinics and hospital sitesin [place], [place], [place] and [place]. This disclosure is being madepursuant to the Care Everywhere program and may not contain all informatio navailable regarding this patient. 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 MOBILE PRODUCT MANAGER Gender Identity Not on file Sexual Orientation Not on file Last Filed Vital Signs Vital Sign Reading Time Taken Comments Blood Pressure 116/62 08/25/2018 2:29 PM MOBILE PRODUCT MANAGER Pulse 80 08/25/2018 2:29 PM MOBILE PRODUCT MANAGER Temperature 36.8 C (98.2 F) 08/25/2018 2:29 PM MOBILE PRODUCT MANAGER Respiratory Rate 16 08/25/2018 2:29 PM MOBILE PRODUCT MANAGER Oxygen Saturation 97% 08/25/2018 2:29 PM MOBILE PRODUCT MANAGER Inhaled Oxygen Concentration - - Weight 83.9 kg (185 lb) 08/25/2018 2:29 PM MOBILE PRODUCT MANAGER Height 180.3 cm (5' 11 ) 08/25/2018 2:29 PM MOBILE PRODUCT MANAGER Body Mass Index 25.8 08/25/2018 2:29 PM MOBILE PRODUCT MANAGER Plan of Treatment Health Maintenance Due Date [...] patient's age to complete this topic Insurance [facility] SELF PAY NO INSURANCE Member Subscriber Plan / Payer (Ef fective for All Dates) Name:Patrick Radford Member ID:Not on file Relation to Subscriber:Not on file Name:PATRICK RADFORD Subscriber ID:Not on file (Home) Address: [address] [place] [id number] Payer ID:Not on file Group ID:Not on file Type:Self Pay Address: [place], [place] [employer] SELF PAY NO INSURANCE Member Subscriber Plan / Payer (Ef fective for All Dates) Name:Patrick Radford Member ID:Not on file Relation to Subscriber:Not on file Name:PATRICK RADFORD Subscriber ID:Not on file Address: [facility] [address] [place] [id number] Payer ID:Not on file Group ID:Not on file Type:Self Pay Address: [place], [place] [facility]ALTH CARE SELF PAY NO INSURANCE Member Subscriber Plan / Payer (Ef fective for All Dates) Name:Patrick Radford Member ID:Not on file Relation to Subscriber:Not on file Name:RADFORDPATRICK Subscriber ID:Not on file Address: [address] [place] [address] Payer ID:Not on file Group ID:Not on file Type:Self Pay Address: [place], [place] [facility] SELF PAY NO INSURANCE Member Subscriber Plan / Payer (Ef fective for All Dates) Name:Patrick Radford Member ID:Not on file Relation to Subscriber:Not on file Name:PATRICK RADFORD Subscriber ID:Not on file Address: [address] [place] [address] Payer ID:Not on file Group ID:Not on file Type:Self Pay Address: [place], [place] Care Teams In Store Marketing Representative Relationship Specialty Start Date End Date Claude Woodward MD [address] [place] [address] PCP - General Family Medicine 08/25/18
--- OUTSIDE RECORDS SUMMARY | 2024-12-19 18:13 | XMS_ITS | Encounter Summary ---
Author Organization [facility] Address [address] [place] [address] Care Team Providers Care Technical Illustrator Name Role Phone Claude Woodward MD Primary Care Provider [phone] Encounter Details Date Type Department Care Team (Late st Contact Info) Description 03/02/2018 Lab Requisition [facility] [address] [place] [id number] Ari Tellez MD [address] [place] [address] Social History Tobacco Use Types Packs/Day Years Used Date Smoking Tobacco: Never Assessed Sex and Gender Information Value Date Recorded Sex Assigned at Not on file 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 Gender Identity Not on file Sexual Orientation Not on file documented as of this encounter Plan of Treatment Not on file documented as of this encounter Procedures Procedure Name Priority Date/Time Associated Diagnosis Comments DERMPATH SLIDE CONSULT Routine 03/02/2018 12:00 AM CDT documented in this encounter Results * DERMPATH SLIDE CONSULT (03/02/2018 12:00 AM CDT) Case Report Dermatopathology Report Case: [id number] Authorizing Provider: Ari Tellez MD Collected: 03/02/2018 12:00 AM Pathologist: Patricia Singh MD Received: 03/02/2018 09:40 AM Specimen: Slide(s), Left lower back, OSC# [id number] 8 2:41 PM CDT DERMATOPATHOLOGY LABORATORY Final Diagnosis Specimen A. Slide(s), Left lower back, OSC# [id number]: DERMATOFIBROMA, CELLULAR TYPE (D23.9) 8 2:41 PM CDT DERMATOPATHOLOGY LABORATORY Clinical History Materials received from: [facility] [address] [place] [id number] Received at the request of Dr. Ari Tellez, a consult will be performed on 3 slide(s) labeled [id number]. Bx Date: 02/19/2018 Cyst vs neoplasm. All slides returned. Any additional sections, special stains or immunohistochemical stains performed by our laboratory will be kept here on file. 2:41 PM CDT DERMATOPATHOLOGY LABORATORY Microscopic Description Specimen A. Slide(s), Left lower back, OSC# [id number]: Within the dermis, there is a cellular [...] characteristic determined by the Dermatopathology Laboratory at [facility]. These tests need not be, and therefore are not, approved by the [place] Food and Drug Administration. The tests are used for clinical purposes. Billing Codes Specimen Charges Stain Charges 14627 1 8 2:41 PM CDT DERMATOPATHOLOGY LABORATORY Embedded Images 8 2:41 PM CDT DERMATOPATHOLOGY LABORATORY Pathology/Cytolog y SLIDE / Unknown 03/02/2018 03/02/2018 9:40 AM CDT Ari Tellez MD LAB - PATHOLOGY/CYTOLOGY ORDERAB LES Final Result DERMATOPATHOLOGY LABORATORY [facility] - Department of Dermatology [address] [facility], 5th Floor Lab [address] [phone] documented in this encounter Visit Diagnoses Not on filedocumented in this encounter Care Teams Technical Illustrator Relationship Specialty Start Date End Date Claude Woodward MD [address] [place] [address] PCP - General Family Medicine 08/25/18 documented as of this encounter
[2024-12-19 18:22] VITALS: BP 120/82; PULSE 86; RESP 16; TEMP 36.4; O2SAT 100
== END 2024-12-19 18:23 | disposition home or self-care (01) ==
PROVIDERS: Emergency Provider Student in an Organized Health Care Education/Training Program; PCP Internal Medicine
DX: T36.1X1A Poisoning by cephalosporins and other beta-lactam antibiotics, accidental (unintentional), initial encounter (principal); E78.5 Hyperlipidemia, unspecified; J45.909 Unspecified asthma, uncomplicated; Z87.891 Personal history of nicotine dependence; Z87.442 Personal history of urinary calculi
CPT/HCPCS: 99281